=== PATIENT | male | born 1985 | race Caucasian/White ===

== ENCOUNTER 2016-04-19 12:49 | Observation (INO) | payer OTHER ==
[~2016-04-19] VITALS: Ht 170.2 cm; Wt 79.5 kg
[~2016-04-19 12:49] MED LIST: ATARAX 25MG25 MG/TAB PO; BACTRIM DS 8001 TAB PO; CEFTIN500 MG PO; CIPRO 500MG TA500 MG PO; FLOMAX 0.40.4 MG/CAP PO; LORTAB 5/500 501 TAB PO; NO HOME MEDICATIONS; NORCO 325 MG-51 TAB PO; NORCO 325 MG-7.1 TAB PO; OXY IR5 MG PO; PROMETHAZINE12.5 M5 PO; ZOFRAN 4MG T4 MG/TAB PO
[2016-04-19 13:07] LABS: BASO % 0.2 % (0.0-2.0); EOS # 0.1 (0.0-0.7); EOS % 0.9 % (0-4.0); GRAN # 11.5 (1.4-6.5); GRAN % 82.7 % (42.2-75.2); HEMATOCRIT 48.7 % (42.0-52.0); HEMOGLOBIN 16.1 g/dl (13.5-18.0); LYMPH # 1.1 (1.2-3.4); LYMPH % 8.2 % (20.0-51.0); MEAN CELL VOLUME 90 fl (80.0-100.0); MEAN CORPUSCULAR HEMOGLOBIN 30 pg (27.0-31.0); MEAN CORPUSCULAR HGB CONC 33 g/dl (33.0-37.0); MEAN PLATELET VOLUME 9.8 fl (7.4-10.4); MONO % 7.4 % (1.7-9.3); PLATELET COUNT 245 K/mm3 (130-400); RED BLOOD COUNT 5.43 M/mm3 (4.20-5.60); REDCELL DISTRIBUTION WIDTH-CV 12.6 % (11.5-14.5); WHITE BLOOD COUNT 13.9 K/mm3 (4.8-10.8)
[2016-04-19 13:19] LABS: ADJUSTED CALCIUM 9.2 mg/dL (8.4-10.2); ALBUMIN 4.8 gm/dL (3.5-5.0); BILIRUBIN,TOTAL 0.8 mg/dL (0.0-1.0); C-REACTIVE PROTEIN 1.7 mg/dL (0.0-0.9); CALCIUM 9.8 mg/dL (8.4-10.2); CREATININE, serum 1.11 mg/dL (0.66-1.25); POTASSIUM 3.7 mmol/L (3.4-5.0); TOTAL PROTEIN 8.6 gm/dL (6.4-8.2)
[2016-04-19 14:44] LABS: PH 6 (5-8); SQUAMOUS EPITHELIAL 0-2 /hpf; URINE APPEARANCE Hazy; URINE BACTERIA None Seen /hpf; URINE BILIRUBIN Negative (NEGATIVE); URINE BLOOD 1+ (NEGATIVE); URINE COLOR Yellow; URINE GLUCOSE Negative (NEGATIVE); URINE KETONE Negative (NEGATIVE); URINE UROBILINOGEN Negative (NEGATIVE); URINE WBC 20-50 /hpf
[2016-04-19 17:55] VITALS: BP 125/77; PULSE 78; TEMP 98.3
[2016-04-19 17:56] VITALS: BP 125/77; PULSE 94; TEMP 98.3
[2016-04-19 22:16] VITALS: BP 151/83; PULSE 85; TEMP 97.8
[2016-04-20 02:22] VITALS: BP 133/71; PULSE 93; TEMP 98.1
[2016-04-20 06:11] VITALS: BP 128/69; PULSE 74; TEMP 98.1
[2016-04-20 06:49] LABS: BASO % 0.5 % (0.0-2.0); EOS # 0.4 (0.0-0.7); EOS % 5.1 % (0-4.0); GRAN # 5.1 (1.4-6.5); GRAN % 69.2 % (42.2-75.2); LYMPH # 1.3 (1.2-3.4); LYMPH % 17.4 % (20.0-51.0); MEAN CELL VOLUME 91 fl (80.0-100.0); MEAN CORPUSCULAR HEMOGLOBIN 29 pg (27.0-31.0); MEAN CORPUSCULAR HGB CONC 32 g/dl (33.0-37.0); MEAN PLATELET VOLUME 10.5 fl (7.4-10.4); MONO # 0.6 (0.1-0.6); MONO % 7.4 % (1.7-9.3); PLATELET COUNT 211 K/mm3 (130-400); RED BLOOD COUNT 4.75 M/mm3 (4.20-5.60); REDCELL DISTRIBUTION WIDTH-CV 12.9 % (11.5-14.5); WHITE BLOOD COUNT 7.4 K/mm3 (4.8-10.8)
[2016-04-20 06:52] LABS: HEMOGLOBIN 13.8 g/dl (13.5-18.0)
[2016-04-20 07:11] LABS: CALCIUM 8.7 mg/dL (8.4-10.2); CREATININE, serum 0.96 mg/dL (0.66-1.25); POTASSIUM 3.7 mmol/L (3.4-5.0)
[2016-04-20 09:53] VITALS: BP 136/68; PULSE 89; TEMP 97.8
[2016-04-20 13:15] VITALS: BP 109/64; PULSE 82; TEMP 98
[2016-04-20] MEDS ORDERED: MEDROL 4MG DOSPA4 MG PO (14:17)
== END 2016-04-20 15:50 | disposition home or self-care (01) ==
LOC: COL.ER 12:49 → SURG 16:56
PROVIDERS: Nurse Practitioner; Surgery
DX: R10.30 Lower abdominal pain, unspecified (principal)
CPT/HCPCS: G0378; J1200; J2270; J2405; J7030; J7509; Q9967

== ENCOUNTER 2016-04-23 23:11 | Emergency (ER) | payer OTHER ==
[~2016-04-23] VITALS: Ht 170.2 cm; Wt 79.5 kg
[~2016-04-23 23:11] MED LIST changes: +MEDROL 4MG DOSPA4 MG PO
[2016-04-23 23:14] VITALS: TEMP 98.7
[2016-04-24 00:10] LABS: BASO # 0.1 (0.0-0.2); BASO % 0.8 % (0.0-2.0); EOS # 0.3 (0.0-0.7); EOS % 3.5 % (0-4.0); GRAN # 4.6 (1.4-6.5); GRAN % 53.8 % (42.2-75.2); HEMATOCRIT 42.3 % (42.0-52.0); HEMOGLOBIN 14.3 g/dl (13.5-18.0); LYMPH # 2.6 (1.2-3.4); LYMPH % 31.1 % (20.0-51.0); MEAN CELL VOLUME 87 fl (80.0-100.0); MEAN CORPUSCULAR HEMOGLOBIN 30 pg (27.0-31.0); MEAN CORPUSCULAR HGB CONC 34 g/dl (33.0-37.0); MEAN PLATELET VOLUME 9.7 fl (7.4-10.4); MONO # 0.9 (0.1-0.6); MONO % 10.3 % (1.7-9.3); PLATELET COUNT 239 K/mm3 (130-400); RED BLOOD COUNT 4.84 M/mm3 (4.20-5.60); REDCELL DISTRIBUTION WIDTH-CV 12.2 % (11.5-14.5); WHITE BLOOD COUNT 8.5 K/mm3 (4.8-10.8)
[2016-04-24 00:24] LABS: ADJUSTED CALCIUM 9.1 mg/dL (8.4-10.2); BILIRUBIN,TOTAL 0.5 mg/dL (0.0-1.0); CALCIUM 9.1 mg/dL (8.4-10.2); CREATININE, serum 0.92 mg/dL (0.66-1.25); POTASSIUM 3.5 mmol/L (3.4-5.0); TOTAL PROTEIN 7.1 gm/dL (6.4-8.2)
[2016-04-24 00:25] LABS: C-REACTIVE PROTEIN 0.5 mg/dL (0.0-0.9)
[2016-04-24 01:08] LABS: PH 7 (5-8); SQUAMOUS EPITHELIAL None Seen /hpf; URINE APPEARANCE Clear; URINE BACTERIA None Seen /hpf; URINE BILIRUBIN Negative (NEGATIVE); URINE BLOOD 1+ (NEGATIVE); URINE COLOR Yellow; URINE GLUCOSE Negative (NEGATIVE); URINE KETONE Negative (NEGATIVE); URINE UROBILINOGEN Negative (NEGATIVE)
[2016-04-24 02:00] VITALS: BP 144/72; PULSE 77
== END 2016-04-24 02:00 | disposition home or self-care (01) ==
LOC: COL.ER 23:11
PROVIDERS: Emergency Medicine
DX: R10.13 Epigastric pain (principal); R19.7 Diarrhea, unspecified
CPT/HCPCS: J1170; J2550; J7030